=== PATIENT | female | born 1955 | race Caucasian/White ===

== ENCOUNTER → 2017-03-22 | Outpatient (CLI) | payer BC ==
[~2017-03-22] MED LIST: ASPIRIN E.C. 8181 MG PO; CALCIUM 600600 M2 PO; CARAFATE 1GM1 G PO; CARDI-OMEGA1000 MG PO; FLAX OIL1000 MG PO; NIASPAN500 MG PO; PRAVACHOL 20MG20 MG PO; PROTONIX40 MG PO; TOPROL; TOPROL XL 25MG25 MG PO; VERAMYST27.5 MCG/A NS; ZINC100 MG PO
== END ==
LOC: MC.RAD 13:54
DX: Z12.31 Encounter for screening mammogram for malignant neoplasm of breast (principal)

== ENCOUNTER 2018-05-16 14:43 | Emergency (ER) | payer OTHER, BC ==
[~2018-05-16] VITALS: Ht 180.3 cm; Wt 102.1 kg
[2018-05-16 14:45] VITALS: BP 119/63; PULSE 75; TEMP 98
[2018-05-16] MEDS ORDERED: FLEXERIL 1010 MG/TAB PO (16:04)
== END 2018-05-16 16:29 | disposition home or self-care (01) ==
LOC: COL.ER 14:43
DX: S13.4XXA Sprain of ligaments of cervical spine, initial encounter (principal); R51 Headache; Z95.1 Presence of aortocoronary bypass graft; V43.52XA Car driver injured in collision with other type car in traffic accident, initial encounter

== ENCOUNTER → 2018-06-20 | Outpatient (CLI) | payer BC ==
[~2018-06-20] MED LIST changes: +FLEXERIL 1010 MG/TAB PO
== END ==
LOC: MC.RAD 10:10
DX: Z12.31 Encounter for screening mammogram for malignant neoplasm of breast (principal)

== ENCOUNTER → 2019-05-13 | Outpatient (CLI) | payer OTHER | LOC: COL.RAD 08:32 | DX: M50.31 Other cervical disc degeneration, high cervical region (principal); M25.78 Osteophyte, vertebrae; M48.02 Spinal stenosis, cervical region ==

== ENCOUNTER → 2019-07-10 | Outpatient (CLI) | payer BC | LOC: MC.RAD 13:07 | DX: Z12.31 Encounter for screening mammogram for malignant neoplasm of breast (principal) ==

== ENCOUNTER → 2020-07-14 | Outpatient (CLI) | payer BC | LOC: MC.RAD 16:11 | DX: Z12.31 Encounter for screening mammogram for malignant neoplasm of breast (principal) ==

== ENCOUNTER → 2021-11-01 | Outpatient (CLI) | payer BC | LOC: MC.RAD 14:24 | DX: Z12.31 Encounter for screening mammogram for malignant neoplasm of breast (principal) ==

== ENCOUNTER → 2022-12-19 | Outpatient (CLI) | payer BC ==
[~2022-12-19] MED LIST changes: +K-DUR20 MEQ PO; +LASIX 40MG TABL40 MG PO; +LIPITOR 40MG TA40 MG PO; +OMEGA-3 1000 MG1 CAP PO; +PROTONIX 40MG T40 MG PO; +SINGULAIR 110 MG/TAB PO; +TOPROL XL 50MG50 MG PO; +ZESTRIL2.5 MG PO; +ZYRTEC 10MG10 MG PO
== END ==
LOC: MC.RAD 09:20
DX: Z12.31 Encounter for screening mammogram for malignant neoplasm of breast (principal)